=== PATIENT | male | born 1970 | race Asian ===

== ENCOUNTER → 2020-08-20 08:09 | Outpatient (CLI) | payer OTHER, SELFPAY ==
--- NOTE | ~2020-08-20 | CT_ITS ---
EXAMINATION: CT abdomen pelvis wo con DATE: 08/20/2020 08:28 INDICATION: Left flank pain TECHNIQUE: Computed tomography (CT) of the abdomen and pelvis was performed without intravenous contr ast. Automated exposure control and iterative reconstruction technique were employed. The dose-length product was 583.53 mGy-cm. COMPARISON: 04/24/2018 FINDINGS: Lung bases are clear. Heart size is normal. No pericardial or pleural effusion. Diffuse hepatic steat osis with focal sparing along the gallbladder fossa. Spleen, pancreas and bilateral adrenal glands ar e normal. Right kidney and ureter are normal with no urolithiasis or hydronephrosis. Obstructing 5 mm stone in the proximal to mid left ureter approximately 17 cm above the level of the ureterovesicular junction at the level of L4 and which results in mild left hydronephrosis. No other urolithiasis. Mo derate amount of stool at the rectum and distal sigmoid colon. No bowel obstruction or abnormal wall thickening. Normal appendix. Bladder is normal. Again seen is calcification of the bilateral vas defe rens which can be seen in the setting of diabetes. No free intraperitoneal gas or fluid. No pathologi timothy enlarged abdominal or pelvic lymphadenopathy. Mild lumbar levocurvature with mild spondylosis. IMPRESSION: 1. 5 mm at least partially obstructing left ureteral stone with mild left hydronephrosis. No other ur olithiasis. Reviewed, dictated and finalized at location B. IMPRESSION: 1. 5 mm at least partially obstructing left ureteral stone with mild left hydro nephrosis. No other urolithiasis.
== END ==
PROVIDERS: PCP Family Medicine; Visit Provider Physician Assistant Medical
DX: N20.0 Calculus of kidney (principal)
CPT/HCPCS: 74176

== ENCOUNTER 2023-12-09 13:39 | Outpatient (CLI) | payer OTHER, SELFPAY ==
[2023-12-09 14:51] LABS: Alanine Aminotransferase 29 U/L (6-50); Albumin Level 4.4 g/dL (3.5-5.1); Alkaline Phosphatase 98 U/L (38-126); Anion Gap 7 mmol/L (4-12); Aspartate Amino Transferase 25 U/L (17-59); Bilirubin,Total 1.1 mg/dL (0.2-1.3); Blood Urea Nitrogen 16 mg/dL (9-20); Calcium 9.4 mg/dL (8.4-10.2); Carbon Dioxide 28 mmol/L (22-30); Chloride 106 mmol/L (98-107); Cholesterol 191 mg/dL (0-200); Estimated Glomerular Filt Rate > 60; Glucose 94 mg/dL (65-110); HDL Direct 40 mg/dL; Potassium 3.9 mmol/L (3.4-5.0); Sodium 141 mmol/L (137-145); Triglycerides 251 mg/dL (<150); Uric Acid 6.4 mg/dL (3.5-8.5)
[2023-12-09 15:02] LABS: LDL Cholesterol Direct 124 mg/dL
[2023-12-09 16:12] LABS: Hemoglobin A1C 6.1 % (<5.7)
== END 2023-12-09 13:40 | disposition home or self-care (01) ==
LOC: ANHLAB 13:40
PROVIDERS: PCP Family Medicine; Visit Provider Family Medicine
DX: N20.0 Calculus of kidney (principal); E11.9 Type 2 diabetes mellitus without complications
CPT/HCPCS: 36415; 80053; 80061; 83036; 84550

== ENCOUNTER 2024-06-20 09:26 | Outpatient (CLI) | payer OTHER, SELFPAY ==
[2024-06-20 10:03] LABS: Alanine Aminotransferase 42 U/L (6-50); Albumin Level 4.4 g/dL (3.5-5.1); Alkaline Phosphatase 101 U/L (38-126); Anion Gap 8 mmol/L (4-12); Aspartate Amino Transferase 29 U/L (17-59); Bilirubin,Total 0.8 mg/dL (0.2-1.3); Blood Urea Nitrogen 20 mg/dL (9-20); Calcium 9.3 mg/dL (8.4-10.2); Carbon Dioxide 30 mmol/L (22-30); Chloride 103 mmol/L (98-107); Cholesterol 204 mg/dL (0-200); Estimated Glomerular Filt Rate > 60; Glucose 114 mg/dL (65-110); HDL Direct 40 mg/dL; Potassium 4.1 mmol/L (3.4-5.0); Sodium 141 mmol/L (137-145); Triglycerides 217 mg/dL (<150)
[2024-06-20 10:14] LABS: LDL Cholesterol Direct 142 mg/dL
[2024-06-20 10:33] LABS: Prostate Specific Antigen 1.8 ng/mL (< OR = 4.0)
[2024-06-20 12:00] LABS: Creatinine Urine 136.1 mg/dL
[2024-06-20 12:07] LABS: MALB Creatinine Ratio 73.5 mg/g (0-30); Microalbumin Urine Random 100.1 mg/L (0-16.7)
[2024-06-20 13:29] LABS: Hemoglobin A1C 6.7 % (<5.7)
== END 2024-06-20 09:27 | disposition home or self-care (01) ==
LOC: ANHLAB 09:27
PROVIDERS: PCP Family Medicine; Visit Provider Family Medicine
DX: E11.21 Type 2 diabetes mellitus with diabetic nephropathy (principal); R97.20 Elevated prostate specific antigen [PSA]
CPT/HCPCS: 36415; 80053; 80061; 82043; 83036; 84153; G0103

== ENCOUNTER 2024-10-02 15:28 | Outpatient (CLI) | payer OTHER, SELFPAY ==
[2024-10-02 15:55] LABS: Alanine Aminotransferase 42 U/L (6-50); Albumin Level 4.5 g/dL (3.5-5.1); Alkaline Phosphatase 91 U/L (38-126); Anion Gap 10 mmol/L (4-12); Aspartate Amino Transferase 28 U/L (17-59); Bilirubin,Total 0.8 mg/dL (0.2-1.3); Blood Urea Nitrogen 14 mg/dL (9-20); Calcium 9.3 mg/dL (8.4-10.2); Carbon Dioxide 27 mmol/L (22-30); Chloride 104 mmol/L (98-107); Cholesterol 192 mg/dL (0-200); Estimated Glomerular Filt Rate > 60; Glucose 86 mg/dL (65-110); HDL Direct 42 mg/dL; Potassium 3.9 mmol/L (3.4-5.0); Sodium 141 mmol/L (137-145); Triglycerides 180 mg/dL (<150); Uric Acid 6.3 mg/dL (3.5-8.5)
[2024-10-02 16:08] LABS: LDL Cholesterol Direct 109 mg/dL
== END 2024-10-02 15:29 | disposition home or self-care (01) ==
LOC: ANHLAB 15:29
PROVIDERS: PCP Family Medicine; Visit Provider Family Medicine
DX: N20.0 Calculus of kidney (principal); E11.9 Type 2 diabetes mellitus without complications
CPT/HCPCS: 36415; 80053; 80061; 83036; 84550

== ENCOUNTER 2024-11-09 11:47 | Emergency (ER) | payer OTHER, SELFPAY ==
--- NOTE | ~2024-11-09 | CT_ITS ---
EXAMINATION: CTA BRAIN/CAROTID DATE: 11/09/2024 12:25 INDICATION: Vertigo TECHNIQUE: Computed tomographic angiography (CTA) of the head and neck was performed with 100 mL Omni paque-350 intravenous contrast. Multiplanar reconstructions and maximum intensity projection 3D-recon structions of the carotid arteries and of the intracranial arteries were created by the technologist on a separate workstation. Precontrast CT of the head was also obtained. Automated exposure control and iterative reconstruction technique were employed.The dose-length product was 1833.55 mGy-cm. COMPARISON: None. FINDINGS: Carotid arteries: Minimal scattered nonhemodynamically significant atherosclerotic plaque along the normal caliber aort ic arch and the great vessels arising from the arch with no dissection. There is no evident atheroscl erotic plaque with 0% stenosis of the right and left carotid bulbs relative to normal distal artery l umen diameter (NASCET criteria). Left vertebral artery is dominant with no atherosclerotic plaque cookie ng the extracranial portions of the bilateral vertebral arteries. Visualized apices of the lungs are clear. Cervical spondylosis with 2 mm retrolisthesis C4 on C5 and moderate associated disc height los s is severe disc height loss with degenerative endplate changes, severe uncovertebral osteoarthritis and posterior endplate osteophytes at C6-C7 contributing to mild central canal and moderate bilateral neural foraminal stenosis at this level. Cervical soft tissues and superior mediastinum are unremark able. Head: No acute intracranial hemorrhage, acute infarction or abnormal extra axial fluid collection. Ventricl es are normal and symmetric. No mass/mass effect. The orbits, paranasal sinuses and mastoid air cells are normal. No abnormally enhancing brain lesions on the postcontrast imaging. Intracranial arteries Left vertebral artery is dominant. There is small amount of nonhemodynamically significant atheroscle rotic plaque along the bilateral intracranial vertebral arteries. Additional small amount nonhemodyna mically evident atherosclerotic plaque at the bilateral carotid siphons.. There is no hemodynamically significant stenosis in the vertebral, basilar and internal carotid arteries. Both A1 and P1 segment s are patent. There is tiny patent anterior communicating and bilateral posterior communicating arter ies. There are no aneurysms identified. Cerebral arterial arborization appears symmetric. IMPRESSION: 1. No evident atherosclerotic plaque with 0% stenosis of the right and left carotid bulbs relative to normal distal artery lumen diameter (NASCET criteria). 2. Normal brain with no acute intracranial process or abnormally enhancing brain lesions. 3. Small amount of nonhemodynamically of atherosclerotic plaque at the bilateral carotid siphons and intracranial vertebral arteries. Otherwise unremarkable cerebral CT angiogram with no hemodynamicall y significant stenosis, thrombosis or aneurysm. Reviewed, dictated and finalized at location A. IMPRESSION: 1. No evident atherosclerotic plaque with 0% stenosis of the right and left car otid bulbs relative to normal distal artery lumen diameter (NASCET criteria). 2. Normal brain with no acute intracranial process or abnormally enhancing brai n lesions. 3. Small amount of nonhemodynamically of atherosclerotic plaque at the bilater al carotid siphons and intracranial vertebral arteries. Otherwise unremarkable cerebral CT angiogram with no hemodynamically significant stenosis, thrombosis or aneurysm.
--- NOTE | 2024-11-09 11:47 | ECG_ITS ---
Test Date: 2024-11-09 12:05:00 Measurements Intervals [place] Rate: 73 P: 29 AK: 162 QRS: 16 QRSD: 89 T: 2 QT: 384 QTc: 426 Interpretive Statements SINUS RHYTHM POSSIBLE RIGHT VENTRICULAR CONDUCTION DELAY BORDERLINE ECG No previous ECG available for comparison Electronically Signed On 11-09-2024 12:21:12 CDT by Adriano Blackwood D.O.
--- NOTE | 2024-11-09 11:49 | ED.GENADULT ---
HPI - General Adult General Chief complaint: Dizziness Stated complaint: vertigo Time Seen by Provider: 11/09/24 11:47 History of Present Illness HPI narrative: The patient is a 54-year-old male who presents ER with dizziness and poor balance ongoing for 2 days. He has had episodes of spinning dizziness which are worse with laying down. He has had increased fatigue. He has felt off in the head. No focal weakness or numbness to any arm or leg. He has not found any coordination issues. No slurred speech. Recently diagnosed with diabetes and started on medication. He has found no alleviating factors. No muffled hearing or tinnitus. Related Data Home Medications ?Medication ?Instructions ?Recorded ?Confirmed ?Last Taken ?Type aspirin 81 mg tablet,delayed 81 mg PO DAILY 05/09/19 06/21/24 Unknown History release cetirizine 10 mg tablet (Zyrtec) 10 mg PO DAILY 05/09/19 06/21/24 Unknown History methylcellulose (laxative) 500 mg 1,000 mg PO DAILY 05/09/19 06/21/24 Unknown History tablet (Fiber Therapy (methylcellulose)) multivitamin 1 tablet PO DAILY 05/09/19 06/21/24 Unknown History krill oil 500 mg capsule mg PO 11/25/22 06/21/24 Unknown History ondansetron 4 mg disintegrating 4 mg PO Q6H PRN 10/04/24 Unknown History tablet Allergies Allergy/AdvReac Type Severity Reaction Status Date / Time hydrochlorothiazide Allergy Unknown Rash Verified 11/09/24 12:14 Review of Systems Review of Systems: All systems reviewed & are unremarkable except as noted in HPI and below Constitutional: Constitutional: Reports no additional constitutional complaints Eyes: Eyes: Reports no additional eye complaints ENT: Reports system reviewed and no additional complaints, except as documented Cardiovascular: Cardiovascular: Reports no additional cardiovascular complaints Neurologic: Reports system reviewed and no additional complaints, except as documented [facility] Past Medical History Medical History Uric acid renal calculus Obesity (BMI 30.0-34.9) Kidney stone Hypertriglyceridemia Left shoulder tendinitis Hyperplastic colon polyp Essential hypertension Sleep apnea in adult Prediabetes Abnormal cystoscopy (~2011) Ureteral calculus (~03/18/17) Surgical History Surgical History History of lithotripsy 2014, 2017 History of lumbar discectomy (~2006) Social History Social History Social History: Caffeine-daily Smoking status: Never smoker Alcohol intake: current Alcohol use details: occasionally Substance use: never Substance use type: does not use Exam Narrative: GENERAL: Well-appearing, well-nourished, and in no acute distress. HEAD: Normocephalic, atraumatic. EYES: PERRL and EOMI. Left gaze nystagmus present. ENT: Mucous membranes moist. Ear canals and TMs normal bilaterally. CHEST: Clear to auscultation. No respiratory distress. HEART: Regular rate and rhythm. No murmur heard. Normal peripheral pulses. EXTREMITIES: Normal range of motion. Normal strength. SKIN: Warm, dry, no rash. NEURO: No focal deficits. Normal finger-nose and iiyw-tj-vets testing. No upper extremity drift. No facial droop. Clear speech, no expressive aphasia. Alert and oriented x3. Walks with steady gait. PSYCH: Normal mood and affect. Course Course Emergency Course: Patient resting comfortably. Informed of lab and imaging results. Has received 1 L IV fluid as well as oral meclizine with improvement of dizziness. Up and ambulatory without dizziness. Appropriate for discharge home. Vital Signs Vital signs: Vital Signs Temperature 98.2 F 11/09/24 12:08 Pulse Rate 78 11/09/24 12:08 Respiratory Rate 16 11/09/24 12:08 Blood Pressure 170/96 H 11/09/24 12:08 Pulse Oximetry 100 11/09/24 12:08 Temperature 98.2 F 11/09/24 12:08 Pulse Rate 80 11/09/24 12:13 Respiratory Rate 16 11/09/24 12:08 Blood Pressure 170/96 H 11/09/24 12:08 Pulse Oximetry 100 11/09/24 12:08 Medical Decision Making Vital Signs Vital Signs: Vital Signs Temperature 98.2 F 11/09/24 12:08 Pulse Rate 78 11/09/24 12:08 Respiratory Rate 16 11/09/24 12:08 Blood Pressure 170/96 H 11/09/24 12:08 Pulse Oximetry 100 11/09/24 12:08 Temperature 98.2 F 11/09/24 12:08 Pulse Rate 80 11/09/24 12:13 Respiratory Rate 16 11/09/24 12:08 Blood Pressure 170/96 H 11/09/24 12:08 Pulse Oximetry 100 11/09/24 12:08 Lab Data 11/09/24 12:08 11/09/24 12:14 Labs: Lab Results 11/09/24 11/09/24 11/09/24 Range/Units 12:05 12:08 12:14 WBC 7.4 (4.5-10.0) K/mm3 RBC 5.23 (4.6-6.20) M/mm3 Hgb 15.7 (14.0-18.0) g/dL Hct 48.1 (42.0-52.0) % MCV 92.0 (80-100) fl MCH 30.0 (26-34) pg MCHC 32.6 (32-36) g/dl RDW 13.5 (11.5-14.5) % Plt Count 220 (150-375) k/mm3 MPV 9.4 (7.4-10.4) fl Immature Gran % (Auto) 0.4 (0-0.5) % Neut % (Auto) 73.3 H (45.5-73.1) % Lymph % (Auto) 19.5 (18.3-44.2) % [place] % (Auto) 5.5 (2.6-8.5) % Eos % (Auto) 0.9 (0-4.4) % Baso % (Auto) 0.4 (0.2-1.2) % Lymph # (Auto) 1.44 (0.9-3.2) K/mm3 [place] # (Auto) 0.4 (0.1-0.6) K/mm3 Eos # (Auto) 0.1 (0-0.3) K/mm3 Baso # (Auto) 0.0 (0.0-0.1) K/mm3 Abs Immat Gran (auto) 0.03 (0.00-0.031) K/mm3 Absolute Neuts (auto) 5.4 (1.3-6.7) K/mm3 Absolute Nucleated RBC 0.000 (0.0-0.012) K/mm3 Nucleated RBC % 0.0 (0.0-0.2) % PT Cancelled INR Cancelled APTT Cancelled Sodium 141 (137-145) mmol/L Potassium 4.1 (3.4-5.0) mmol/L Chloride 107 (98-107) mmol/L Carbon Dioxide 22 (22-30) mmol/L Anion Gap 12 (4-12) mmol/L BUN 13 (9-20) mg/dL Creatinine 0.89 1.00 (0.7-1.3) mg/dL Estim Creat Clear Calc 83 75 ml/min Estimated GFR > 60 > 60 (59 - ) Glucose 103 (65-110) mg/dL Calcium 9.1 (8.4-10.2) mg/dL Total Bilirubin 0.9 (0.2-1.3) mg/dL AST 40 (17-59) U/L ALT 41 (6-50) U/L Alkaline Phosphatase 90 (38-126) U/L Troponin I < 0.012 (0.000-0.034) ng/mL Total Protein 7.5 (6.3-8.2) g/dL Albumin 4.5 (3.5-5.1) g/dL Imaging Data Radiologist's impression: ITS Impressions Head/Neck CTA 11/09/24 12:33 IMPRESSION: 1. No evident atherosclerotic plaque with 0% stenosis of the right and left carotid bulbs relative to normal distal artery lumen diameter (NASCET criteria). 2. Normal brain with no acute intracranial process or abnormally enhancing brain lesions. 3. Small amount of nonhemodynamically of atherosclerotic plaque at the bilateral carotid siphons and intracranial vertebral arteries. Otherwise unremarkable cerebral CT angiogram with no hemodynamically significant stenosis, thrombosis or aneurysm. ECG Data EKG #1: ECG completion date: 11/09/24 ECG completion time: 12:05 EKG Interpretation: normal rate (73), sinus rhythm, normal QRS, normal QT and NL axis Discharge Plan Discharge Clinical Impression: Vertigo Patient Disposition: Home Condition: Stable Instructions: Vertigo (ED) Additional Instructions: Return the ER if you have worsening dizziness, you have new focal weakness or numbness several arm or leg, you develop difficulty speaking, or have additional concerns. Patient Language: Guatemalan Prescriptions: New meclizine 25 mg tablet 25 mg PO BID PRN (Reason: dizziness) Qty: 20 0RF ondansetron 4 mg tablet,disintegrating 4 mg PO Q6H PRN (Reason: nausea and vomiting) Qty: 10 0RF No Action aspirin 81 mg tablet,delayed release (DR/EC) 81 mg PO DAILY cetirizine [Zyrtec] 10 mg tablet 10 mg PO DAILY multivitamin Tablet 1 tablet PO DAILY Fiber Therapy (m-cellulose) 500 mg tablet 1,000 mg PO DAILY ondansetron 4 mg tablet,disintegrating 4 mg PO Q6H PRN krill oil 500 mg capsule PO metformin 500 mg tablet extended release 24 hr 1,000 mg PO BID Qty: 360 3RF Rx Instructions: take with meals telmisartan [Micardis] 80 mg tablet 80 mg PO DAILY Qty: 90 1RF rosuvastatin [Crestor] 10 mg tablet 10 mg PO DAILY Qty: 90 1RF amlodipine 10 mg tablet See Rx Instructions .ROUTE .COMPLEX Qty: 90 1RF Dose Instruction: TAKE 1 TABLET BY MOUTH DAILY Rx Instructions: TAKE 1 TABLET BY MOUTH DAILY allopurinol 300 mg tablet 150 mg PO DAILY Qty: 45 1RF pantoprazole 40 mg tablet,delayed release (DR/EC) 40 mg PO DAILY Qty: 90 4RF Rybelsus 14 mg tablet 14 mg PO DAILY Qty: 90 3RF Follow-up/Referrals: Alin Tejeda MD [Primary Care Provider] - 1 Week Quality Stroke Scale Stroke Scale 1: Stroke scale date:: 11/09/24 Stroke scale time:: 11:49 1a Level of consciousness: alert-0 1b Level of consciousness questions: answers both correctly-0 1c Level of consciousness commands: obeys both correctly-0 2 Best gaze: normal-0 3 Visual: no visual loss-0 4 Facial palsy: normal-0 5a Motor: left arm: no drift-0 5b Motor: right arm: no drift-0 6a Motor: left leg: no drift-0 6b Motor: right leg: no drift-0 7 Limb ataxia: absent-0 8 Sensory: normal-0 9 Best language: no aphasia-0 10 Dysarthria: normal-0 11 Extinction and inattention: no abnormality-0 Level:: 0
--- OUTSIDE RECORDS SUMMARY | 2024-11-09 11:49 | XMS_ITS | Clinical Summary ---
Author Organization [facility] Address [address] [place] [address] Care Team Providers Care Feed Preparation Operator Name Role Phone Unavailable Primary Care Provider Unavailabl e Source Comments [facility],non-owned Affiliates and Associated Physician Practices is amultiple site organization consisting of ambulatory clinics and hospital sitesin [place], [place], [place] and [place]. This disclosure is being madepursuant to the Care Everywhere program and may not contain all information available regarding this patient. 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 Gender Identity Not on file Sexual Orientation Not on file Plan of Treatment Health Maintenance Due Date Last Done Comments COLOGUARD (AGES 45-75) - COL ON CA SCREENING 1969 COLON MONITORING 1969 COLONOSCOPY - COLON CA SCREENING 1969 CT COLONOGRAPHY - COLON CA SCREENING 1969 Colorectal Cancer Screening 1969 FIT - COLON CA SCREENING 1969 FLEX SIG - COLON CA SCREENING 1969 LIPID TESTING 1969 HIV SCREENING 02/13/1984 HEPATITIS C SCREENING 02/08/1987 DTAP/TDAP/TD VACCINES (1 - Tdap) 02/13/1988 HEPATITIS B VACCINE (1 of 3 - 19+ 3-dose series) 02/13/1988 PNEUMOCOCCAL VACCINE 50+ (1 of 1 - PCV) 2019 ZOSTER VACCINE (1 of 2) 2019 COVID-19 VACCINE (2023-2 5 season) 2024 06/16/2020, 05/27/2020 DEPRESSION SCREENING 06/06/2024 INFLUENZA VACCINE (Season Ended) 2025 HIB VACCINE Aged Out No longer eligi ble based on patient's age to complete this topic HPV VACCINE Aged Out No longer eligi ble based on patient's age to complete this topic MENINGOCOCCAL (Group B) VACCINE SHARED DECISION-MAKING Aged Out No longer eligible based on patient's age to complete this topic MENINGOCOCCAL GROUPS A/C/Y/W VACCINE Aged Out No longer eligible b ased on patient's age to complete this topic Insurance [facility]
--- OUTSIDE RECORDS SUMMARY | 2024-11-09 11:49 | XMS_ITS | Clinical Summary ---
Author Organization [facility] Address [address] [place] [phone] Phone Care Team Providers Care Glaciologist Name Role Phone Alin Tejeda MD Primary Care Provider [phone]- [phone] Medications telmisartan (MICARDIS) 80 mg Tablet Take 80 mg by mouth daily. Active amLODIPine (NORVASC) 10 mg tablet Take 10 mg by mouth daily. Active rosuvastatin (CRESTOR) 10 mg tablet Take 10 mg by mouth daily at bedtime. Active cetirizine (ZyrTEC) 10 mg tablet Take 10 mg by mouth daily. Active aspirin (RY CHEWABLE) 81 mg Tablet, Chewable Take 81 mg by mouth daily. Active multivitamin (DAILY-ARIANA) tablet Take 1 Tablet by mouth daily. Active metFORMIN (GLUCOPHAGE) 500 mg tablet Take 500 mg by mouth 2 times daily with meals. Active Family History Medical History Relation Name Comments Colon Cancer Neg Hx Social History Tobacco Use Types Packs/Day Years Used Date Smoking Tobacco: Never Smokeless Tobacco: Never Alcohol Use Standard Drinks/Week Comments Yes 0 (1 standard drink = 0.6 oz pur e alcohol) Sex and Gender Information Value Date Recorded Sex Assigned at Not on file Legal Sex Male 11:58 PM CDT Gender Identity Not on file Sexual Orientation Not on file Last Filed Vital Signs Vital Sign Reading Time Taken Comments Blood Pressure 109/82 08/22/2019 9:58 AM CDT Pulse 86 08/22/2019 9:58 AM CDT Temperature 36 C (96.8 F) 08/22/2019 9:43 AM CDT Respiratory Rate 18 08/22/2019 9:58 AM CDT Oxygen Saturation 100% 08/22/2019 9:58 AM CDT Inhaled Oxygen Concentration - - Weight 86.7 kg (191 lb 3.2 oz) 08/22/2019 8:30 A M CDT Height 167.6 cm (5' 6) 08/22/2019 8:30 AM CDT Body Mass Index 30.86 08/22/2019 8:30 AM CDT Plan of Treatment Health Maintenance Due Date Last Done Comments DTAP/TDAP/TD VACCINES (1 - Tdap) 02/13/1988 HEPATITIS B VACCINES (1 of 3 - 19+ 3-dose series) 02/13/1988 FIT-DNA Q 3 years 2014 FIT/FOBT Q 1 year 2014 Flex Sig/CT Colonography Q 5 years 2014 ZOSTER VACCINE (1 of 2) 2019 INFLUENZA VACCINE (#1) 2024 COLORECTAL SCREENING 08/21/2029 08/22/2019, 08/22/19 20 Colorectal Cancer Screening 08/21/2029 Procedures Procedure Name Priority Date/Time Associated Diagnosis Comments COLONOSCOPY REPORT 08/22/2019 9: 40 AM CDT from Last 3 Months or Most Recently Relevant to Health Maintenance Results * COLONOSCOPY REPORT (08/22/2019 9:40 AM CDT) Narrative Procedure Note Kiran Man MD - 08/22/2019 9:39 AM CDT [facility] Endoscopy Patient Name: Rufino Rodriguez Procedure Date: 08/22/2019 Date of : 1970 Admit Type: Outpatient Attending MD: Kiran Man MD Procedure: Colonoscopy Indications: Screening for colorectal malignant neoplasm, This is the patient's first colonoscopy Providers: Kiran Man MD Referring MD: Alin Tejeda MD Medicines: Propofol per Anesthesia Complications: No immediate complications. Procedure: Informed consent was obtained for the procedure, including moderate sedation after risks were discussed. Based on the pre-procedure assessment, including review of the patient's medical history, medications, allergies, and review of systems, the patient was deemed to be an appropriate candidate for sedation. A timeout was performed. Continuous ECG monitoring, pulse oximetry, blood pressure monitoring, and direct observation were performed. The Colonoscope was introduced through the anus and advanced to the cecum, identified by appendiceal orifice and ileocecal valve. The colonoscopy was performed without difficulty. The patient tolerated the procedure well. The quality of the bowel preparation was excellent and good. Estimated Blood Loss: Estimated blood loss: none. Findings: The colonic mucosa was without erythema or ulceration. There were no appreciable diverticulum. The colon prep was excellent. On withdrawal there was only a single 3 to 4 mm benign-appearing polyp within the proximal rectum identified removed using cold snare polypectomy and collected for pathologic review. Retroflexion showed internal hemorrhoids. Impression: Benign-appearing colon polyp status post polypectomy as dictated. Internal hemorrhoids. Recommendation: For colon polyp surveillance/colon cancer screening recommend follow-up colonoscopy in 7 to 10 years Kiran Man MD 08/22/2019 9:39:04 AM This report has been signed electronically. Number of Addenda: [phone] ; [place] [address] Kiran Man MD GI PROCEDURE ORDERABLES Lyla l Result from Last 3 Months or Most Recently Relevant to Health Maintenance Insurance [facility] [id number] Advance Directives For more information, please contact: [phone] * Full Code (Latest Code Status on File) Date Activated Date Inactivated Comments 08/22/2019 8:32 AM 08/22/2019 12:25 PM Care Teams Glaciologist Relationship Specialty Start Date End Date Alin Tejeda MD PCP - General Family Practice 08/22/19
[2024-11-09 12:08] VITALS: BP 170/96; PULSE 78; RESP 16; TEMP 36.8; O2SAT 100
[2024-11-09 12:13] VITALS: PULSE 80
[2024-11-09 12:17] LABS: Estimated CRCL calculation 75 ml/min; Estimated Glomerular Filt Rate > 60
[2024-11-09] MEDS: SODIUM CHLORIDE 0.9% IV 1,000 ML 999 ML IV CONT (12:24)
[2024-11-09] MEDS: MECLIZINE HCL 25 MG TABLET PO (12:24)
[2024-11-09 12:26] LABS: Basophils Percent Auto 0.4 % (0.2-1.2); Eosinophils Absolute Auto 0.1 K/mm3 (0-0.3); Eosinophils Percent Auto 0.9 % (0-4.4); Hematocrit 48.1 % (42.0-52.0); Hemoglobin 15.7 g/dL (14.0-18.0); Immature Granulocyte Absolute 0.03 K/mm3 (0.00-0.031); Immature Granulocyte Percent A 0.4 % (0-0.5); Lymphocytes Absolute Auto 1.44 K/mm3 (0.9-3.2); Lymphocytes Percent Auto 19.5 % (18.3-44.2); Mean Corpuscular HGB Conc 32.6 g/dl (32-36); Mean Platelet Volume 9.4 fl (7.4-10.4); Monocytes Absolute Auto 0.4 K/mm3 (0.1-0.6); Monocytes Percent Auto 5.5 % (2.6-8.5); Neutrophils Absolute Auto 5.4 K/mm3 (1.3-6.7); Neutrophils Percent Auto 73.3 % (45.5-73.1); Platelet Count Result 220 k/mm3 (150-375); Red Blood Count 5.23 M/mm3 (4.6-6.20); Red Cell Distribution Width 13.5 % (11.5-14.5); White Blood Count 7.4 K/mm3 (4.5-10.0)
[2024-11-09 12:38] LABS: Alanine Aminotransferase 41 U/L (6-50); Albumin Level 4.5 g/dL (3.5-5.1); Alkaline Phosphatase 90 U/L (38-126); Anion Gap 12 mmol/L (4-12); Aspartate Amino Transferase 40 U/L (17-59); Bilirubin,Total 0.9 mg/dL (0.2-1.3); Blood Urea Nitrogen 13 mg/dL (9-20); Calcium 9.1 mg/dL (8.4-10.2); Carbon Dioxide 22 mmol/L (22-30); Chloride 107 mmol/L (98-107); Estimated CRCL calculation 83 ml/min; Estimated Glomerular Filt Rate > 60; Glucose 103 mg/dL (65-110); Potassium 4.1 mmol/L (3.4-5.0); Sodium 141 mmol/L (137-145); Total Protein 7.5 g/dL (6.3-8.2)
--- OUTSIDE RECORDS SUMMARY | 2024-11-09 12:39 | XMS_ITS | Clinical Summary ---
Author Organization [facility] Address [address] [place] [address] Care Team Providers Care Dramatic Art Teacher Name Role Phone Unavailable Primary Care Provider Unavailabl e Source Comments [facility],non-owned Affiliates and Associated Physician Practices is amultiple site organization consisting of ambulatory clinics and hospital sitesin [place], [place], [place] and [place]. This disclosure is being madepursuant to the Care Everywhere program and may not contain all information available regarding this patient. 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
--- OUTSIDE RECORDS SUMMARY | 2024-11-09 12:39 | XMS_ITS | Clinical Summary ---
Author Organization [facility] Address [address] [place] [phone] Phone Care Team Providers Care Deck Scaler Name Role Phone Alin Tejeda MD Primary Care Provider +1- [phone] Medications telmisartan (MICARDIS) 80 mg Tablet Take [...] Man MD - 08/22/2019 9:39 AM CDT [facility] [place] [facility] Endoscopy Patient Name: Rufino Rodriguez Procedure Date: [...] of Addenda: [address] ; [place] [address] Kiran Man MD GI PROCEDURE ORDERABLES Lyla l Result from Last 3 Months or Most Recently Relevant to Health Maintenance Insurance [facility] [id number] Advance Directives For more information, please contact: [phone] * Full Code (Latest Code Status on File) Date Activated Date Inactivated Comments 08/22/2019 8:32 AM 08/22/2019 12:25 PM Care Teams Deck Scaler Relationship Specialty Start Date End Date Alin Tejeda MD PCP - General Family Practice 08/22/19
[2024-11-09 12:46] LABS: Troponin I < 0.012 ng/mL (0.000-0.034)
[2024-11-09 13:05] VITALS: PULSE 78; RESP 16; O2SAT 98
== END 2024-11-09 13:10 | disposition home or self-care (01) ==
PROVIDERS: Emergency Provider Emergency Medicine; PCP Family Medicine
DX: R42 Dizziness and giddiness (principal); I10 Essential (primary) hypertension; E11.9 Type 2 diabetes mellitus without complications; E78.1 Pure hyperglyceridemia; G47.30 Sleep apnea, unspecified; Z86.0102 Personal history of hyperplastic colon polyps; Z87.442 Personal history of urinary calculi; Z79.82 Long term (current) use of aspirin; Z79.899 Other long term (current) drug therapy; Z79.84 Long term (current) use of oral hypoglycemic drugs; R94.31 Abnormal electrocardiogram [ECG] [EKG]
CPT/HCPCS: 36415; 70496; 70498; 80053; 84484; 85025; 93005; 96360; 99284; A9270; J7030; Q9967

== ENCOUNTER 2025-03-27 11:58 | Outpatient (CLI) | payer OTHER, SELFPAY ==
[2025-03-27 12:42] LABS: Alanine Aminotransferase 34 U/L (6-50); Albumin Level 4.4 g/dL (3.5-5.1); Alkaline Phosphatase 91 U/L (38-126); Anion Gap 8 mmol/L (4-12); Aspartate Amino Transferase 28 U/L (17-59); Bilirubin,Total 0.9 mg/dL (0.2-1.3); Blood Urea Nitrogen 18 mg/dL (9-20); Calcium 9.0 mg/dL (8.4-10.2); Carbon Dioxide 26 mmol/L (22-30); Chloride 102 mmol/L (98-107); Cholesterol 183 mg/dL (0-200); Estimated Glomerular Filt Rate > 60; Glucose 95 mg/dL (65-110); HDL Direct 41 mg/dL; Potassium 3.9 mmol/L (3.4-5.0); Sodium 136 mmol/L (137-145); Total Protein 7.3 g/dL (6.3-8.2); Triglycerides 181 mg/dL (<150)
[2025-03-27 12:59] LABS: MALB Creatinine Ratio 66.8 mg/g (0-30)
[2025-03-27 14:00] LABS: Hemoglobin A1C 5.7 % (<5.7)
--- OUTSIDE RECORDS SUMMARY | 2025-03-27 15:12 | XMS_ITS | Clinical Summary ---
Author Organization [facility] Address [address] [place] [address] Care Team Providers Care Event Specialist Product Demonstrator Name Role Phone Unavailable Primary Care Provider Unavailabl e Source Comments [facility] [employer],non-owned Affiliates and Associated Physician Practices is amultiple site organization consisting of ambulatory clinics and hospital sitesin [place], [place], [place] and [place]. This disclosure is being madepursuant to the Care Everywhere program and may not contain all information available regarding this patient. Last updated 18.[facility] [employer] [facility] Immunizations Immunization Administration Dates Next Due Covid Pfizer primary monoval ent 12+ yr 0.3mL Purple cap 06/16/2020,05/27/2020 Social History Tobacco Use Types Packs/Day Years Used Date Smoking Tobacco: Never Assessed Sex and Gender Information Value Date Recorded Sex Assigned at Not on file Legal Sex Male 12:50 PM [employer] Gender Identity Not on file Sexual Orientation [...] 2019 ZOSTER VACCINE (1 of 2) 2019 DEPRESSION SCREENING 06/06/2024 COVID-19 VACCINE (3 - 2024-2 6 season) 2025 06/16/2020, 05/27/2020 INFLUENZA VACCINE (#1) 2025 HIB VACCINE Aged Out No longer [...]
--- OUTSIDE RECORDS SUMMARY | 2025-03-27 15:12 | XMS_ITS | Clinical Summary ---
Author Organization [facility] Address [address] [place] [phone] Phone Care Team Providers Care Aerial Photograph Interpreter Name Role Phone Alin Tejeda MD Primary Care Provider [phone] Medications telmisartan (MICARDIS) 80 mg Tablet Take [...] (1 of 2) 2019 INFLUENZA VACCINE (#1) 2025 COLORECTAL SCREENING 08/21/2029 08/22/2019, 08/22/19 20 Colorectal Cancer Screening 08/21/2029 Procedures Procedure Name Priority Date/Time Associated Diagnosis Comments COLONOSCOPY REPORT 08/22/2019 9: 40 AM CDT from Last 3 Months or Most Recently Relevant to Health Maintenance Results * COLONOSCOPY REPORT (08/22/2019 9:40 AM CDT) Narrative Procedure Note Kiran Man MD - 08/22/2019 9:39 AM CDT [facility] Endoscopy Patient Name: Rufino Rodriguez Procedure Date: [...] of Addenda: [phone] ; [place] [address] Kiran Man MD GI PROCEDURE ORDERABLES Lyla l Result from Last 3 Months or Most Recently Relevant to Health Maintenance Insurance [employer] [employer] PPO [id number] Advance Directives For more information, please contact: [phone] * Full Code (Latest Code Status on File) Date Activated Date Inactivated Comments 08/22/2019 8:32 AM 08/22/2019 12:25 PM Care Teams Aerial Photograph Interpreter Relationship Specialty Start Date End Date Alin Tejeda MD PCP - General Family Practice 08/22/19
== END 2025-03-27 11:59 | disposition home or self-care (01) ==
LOC: ANHLAB 11:59
PROVIDERS: PCP Family Medicine; Visit Provider Family Medicine
DX: E11.21 Type 2 diabetes mellitus with diabetic nephropathy (principal)
CPT/HCPCS: 36415; 80053; 80061; 82043; 83036